=== PATIENT | male | born 1950 | race Caucasian/White ===

== ENCOUNTER 2018-02-10 00:55 | Emergency (ER) | payer OTHER ==
[~2018-02-10] VITALS: Ht 170.2 cm; Wt 81.4 kg
[2018-02-10 01:03] VITALS: Ht 170.2 cm; Wt 81.4 kg
[2018-02-10] MEDS ORDERED: ROBAXIN500 MG PO (01:04)
[2018-02-10] MEDS ORDERED: PYRIDOXINE HCL100 MG PO (01:04)
[2018-02-10] MEDS ORDERED: IBUPROFEN800 MG PO (01:05)
[2018-02-10] MEDS ORDERED: CYCLOBENZAPRINE10 MG PO (01:06)
[2018-02-10] MEDS ORDERED: SUDAFED 30 MG T30 MG PO (01:06)
[2018-02-10 01:23] LABS: BASOPHILS 1.5 % (0-2); HEMATOCRIT 32.6 % (42.0-54.0); HEMOGLOBIN 9.9 g/dL (13.5-17.5); IMMATURE GRANULOCYTES 0.2 % (0-5); LYMPHOCYTES 18.8 % (15-50); MCH 24.4 pg (26.0-34.0); MCHC 30.4 g/dL (31.0-37.0); MCV 80.3 fL (80.0-100.0); MEAN PLATELET VOLUME 8.2 fL (7.4-10.4); MONOCYTES 14.1 % (2-11); NEUTROPHILS 58.4 % (40-80); PLATELET COUNT 154 10x3/uL (130-400); RBC 4.06 10x6/uL (4.20-6.10); RDW 17.5 % (11.5-14.5); WBC 5.3 10x3/uL (4.8-10.8)
[2018-02-10 01:37] LABS: INR 0.98 (0.85-1.17); PROTIME 12.5 SECONDS (11.6-15.0)
[2018-02-10 01:40] LABS: ALBUMIN 3.5 g/dL (3.4-5.0); ANION GAP 17.2 mmol/L (8-16); BILIRUBIN - TOTAL 0.24 mg/dL (0.2-1.3); CALCIUM 8.2 mg/dL (8.5-10.1); CARBON DIOXIDE 22.6 mmol/L (21.0-32.0); CREATININE - SERUM 1.1 mg/dL (0.6-1.3); POTASSIUM - SERUM 3.8 mmol/L (3.5-5.1); PROTEIN - SERUM 7.3 g/dL (6.4-8.2)
[2018-02-10 02:20] LABS: CKMB 3.1 U/L (0.0-3.6); TROPONIN-I < 0.017 ng/mL (0.000-0.060)
[2018-02-10 06:04] VITALS: BP 122/78
== END 2018-02-10 06:04 | disposition other institution (70) ==
LOC: D.ER 00:55
PROVIDERS: Family Medicine
DX: G45.9 Transient cerebral ischemic attack, unspecified (principal); R53.1 Weakness; R32 Unspecified urinary incontinence; Z85.46 Personal history of malignant neoplasm of prostate